=== PATIENT | female | born 1970 | race African-American/Black ===

== ENCOUNTER 2019-01-04 11:12 | Emergency (ER) | payer OTHER ==
[2019-01-04 11:36] VITALS: BP 140/91
--- NOTE | 2019-01-04 12:07 | UC ---
Knee Pain HPI - HPI Summary HPI Summary: Patient is a 48-year-old female, history of substance abuse, psychiatric illness , here for left knee pain. Patient banged her left knee to a coffee table 2 days ago. Patient's had pain in her lateral knee since then. Patient has been able to ambulate. Patient is taking naproxen, icing her knee, and using a knee brace. Patient has been sober from drugs for 13 years and works at a [employer]. medications reviewed - History of Current Complaint Chief Complaint: UCLowerExtremity Stated Complaint: KNEE INJ Time Seen by Provider: 01/04/19 11:39 Pain Intensity: 0 - Allergies/Home Medications Allergies/Adverse Reactions: Allergies Allergy/AdvReac Type Severity Reaction Status Date / Time acetaminophen [From Tylenol] Allergy Itching Verified 01/04/19 11:36 PMH/Surg Hx/FS Hx/Imm Hx Previously Healthy: No Cardiovascular History: Hypertension Psychological History: Depression, Bipolar Disorder - Surgical History Surgical History: Yes Surgery Procedure, Year, and Place: mouth reconstruction. finger amp to right hand. abdominal surgery - Family History Known Family History: Positive: Non-Contributory - Social History Alcohol Use: None Substance Use Type: None Smoking Status (MU): Current Some Day Smoker Review of Systems All Other Systems Reviewed And Are Negative: Yes Constitutional: Negative: Fever, Chills Skin: Negative: Bruising Respiratory: Negative: Shortness Of Breath, Cough Cardiovascular: Negative: Chest Pain Gastrointestinal: Negative: Vomiting, Diarrhea Physical Exam - Summary Physical Exam Summary: Vital Signs Reviewed: Yes A+Ox3, no distress Eyes: Conjunctiva Clear, PERRL. EOM intact and full ENT: Hearing grossly normal TM x 2 clear, moist, uvula midline, no exudate, no erythema Neck: Positive: Supple Respiratory: Positive: No respiratory distress, No accessory muscle use + CTA throughout no w/r Cardiovascular: RRR nl s1, s2 no m/r CBT <2 sec abd soft + BS nt/nd no guarding, no distension Musculoskeletal Exam: Left knee with tenderness on the lateral aspect. Patient' s full range of motion in her knee. No bony tenderness no medial or lateral joint laxity. Negative anterior and posterior drawer sign. DP/PT pupils 2+. Neurological: Positive: Alert, + sensation throughout Psychological: Positive: Normal Response To Family Skin: no rash, no ecchymosis Vital Signs: Initial Vital Signs Temp 98.5 F 01/04/19 11:28 Pulse 74 01/04/19 11:28 Resp 18 01/04/19 11:28 BP 140/91 01/04/19 11:28 Pulse Ox 98 01/04/19 11:28 Knee Pain Course/Dx - Course Course Of Treatment: Patient is here with an injury to her left knee. Patient able walk on her knee and has no bony tenderness. Patient did not need an x-ray today. Patient is arty treating her leg appropriately with a brace, Naprosyn, ice, elevating her leg. Patient was encouraged continue doing this and was given orthopedic surgery follow-up in case her symptoms are not improved. - Differential Dx/Diagnosis Provider Diagnosis: Left knee injury Discharge ED - Sign-Out/Discharge Documenting (check all that apply): Patient Departure All imaging exams completed and their final reports reviewed: No Studies - Discharge Plan Condition: Stable Disposition: HOME Patient Education Materials: Knee Pain (ED) Referrals: Justine Jacobs MD [Primary Care Provider] - Eliezer Servin MD [Medical Doctor] - Additional Instructions: Please continue taking Naprosyn for pain Please continue icing your knee Please continue using the brace please call the orthopedic surgeon if you continue to have symptoms. - Billing Disposition and Condition Condition: STABLE Disposition: Home
== END 2019-01-04 12:16 | disposition home or self-care (01) ==
LOC: UCCORT 11:12
DX: S89.92XA Unspecified injury of left lower leg, initial encounter (principal); W22.8XXA Striking against or struck by other objects, initial encounter; Y92.9 Unspecified place or not applicable; Z88.6 Allergy status to analgesic agent; I10 Essential (primary) hypertension; F17.200 Nicotine dependence, unspecified, uncomplicated
CPT/HCPCS: 99211; G0463

== ENCOUNTER 2019-04-16 13:17 | Emergency (ER) | payer OTHER ==
[2019-04-16 13:36] VITALS: BP 151/93
[2019-04-16] MEDS ORDERED: Tetan/Diph/Pertus SYR(Tdap)* 0.5 ML SYR(BOOSTRIX) use SYR contains LATEX IM ONE (13:47)
--- NOTE | 2019-04-16 13:57 | UC ---
Minor Trauma HPI - HPI Summary HPI Summary: needle stick left 5th finger as she was doing the needle exchange program , she was stuck , minimal bleeding pt. is here for PEP - History of Current Complaint Chief Complaint: UCGeneralIllness Stated Complaint: FINGER STICK Time Seen by Provider: 04/16/19 13:29 Hx Obtained From: Patient ?: No Onset/Duration: Sudden Onset, Lasting Hours - 4, Still Present Severity Initially: Moderate Severity Currently: Moderate Pain Intensity: 0 Mechanism Of Injury: Penetrating Trauma - needle stick Aggravating Factor(s): Nothing Alleviating Factor(s): Nothing - Allergies/Home Medications Allergies/Adverse Reactions: Allergies Allergy/AdvReac Type Severity Reaction Status Date / Time acetaminophen [From Tylenol] Allergy Itching Verified 04/16/19 13:26 Home Medications: Home Medications Nicotine GUM* 4MG FRUIT FLAVOR [Nicotine GUM*] 4 mg PO Q2H PRN 04/16/19 [ History Confirmed 04/16/19] Nicotine PATCH 14 MG/24 HR* 14 mg TRANSDERM DAILY 04/16/19 [History Confirmed ] PMH/Surg Hx/FS Hx/Imm Hx - Additional Past Medical History Additional PMH: schizo affective disorder depression PTSD manic scoliosis - Surgical History Surgical History: Yes Surgery Procedure, Year, and Place: mouth reconstruction. finger amp to right hand. abdominal surgery - Family History Known Family History: Positive: Non-Contributory - Social History Alcohol Use: None Substance Use Type: Marijuana Smoking Status (MU): Former Smoker When Did the Patient Quit Smoking/Using Tobacco: 05/2018 Review of Systems All Other Systems Reviewed And Are Negative: Yes Is Patient Immunocompromised?: No Physical Exam Triage Information Reviewed: Yes Appearance: Well-Appearing, No Pain Distress, Well-Nourished Vital Signs: Initial Vital Signs Temp 98.3 F 04/16/19 13:30 Pulse 79 04/16/19 13:30 Resp 16 04/16/19 13:30 BP 151/93 04/16/19 13:30 Pulse Ox 100 04/16/19 13:30 Vital Signs Reviewed: Yes Eye Exam: Normal Eyes: Positive: Conjunctiva Clear ENT: Positive: Normal ENT inspection, Hearing grossly normal, Pharynx normal Neck: Positive: Supple, Nontender, No Lymphadenopathy Respiratory: Positive: Chest non-tender, Lungs clear, Normal breath sounds Cardiovascular: Positive: RRR, No Murmur, Pulses Normal Abdominal Exam: Normal Skin Exam: Normal Minor Trauma Course/Dx - Differential Dx/Diagnosis Provider Diagnosis: Needle stick injury of finger Discharge ED - Sign-Out/Discharge Documenting (check all that apply): Patient Departure All imaging exams completed and their final reports reviewed: No Studies - Discharge Plan Condition: Stable Disposition: HOME Prescriptions: Raltegravir* [Isentress*] 400 mg PO BID #28 tab Tenofovir/Emtricitab 200/300 * [Truvada 200/300 mg*] 1 tab PO DAILY #14 tab Patient Education Materials: Needle Stick Injuries (ED) Referrals: Justine Jacobs MD [Primary Care Provider] - 7 Days - Billing Disposition and Condition Condition: STABLE Disposition: Home
[2019-04-16 18:52] LABS: ABS Eosinophils 0.3 10^3/ul (0-0.6); ABS Monocytes 0.5 10^3/ul (0-0.8); ABS Neutrophils 1.8 10^3/ul (1.5-7.7); Eosinophil % 5.8 %; Hematocrit 37 % (35-47); Hemoglobin 12.3 g/dL (12.0-16.0); Lymphocyte % 43.7 %; Mean Corpuscular HGB Conc 34 g/dL (31-36); Mean Corpuscular Hemoglobin 28 pg (27-31); Mean Corpuscular Volume 85 fL (80-97); Nucleated Red Blood Cells % 0.1; Platelet Count 187 10^3/uL (150-450); Red Blood Count 4.33 10^6 /uL (3.70-4.87); Red Cell Distribution Width 14 % (10-15); White Blood Count 4.5 10^3/uL (3.5-10.8)
[2019-04-16 19:03] LABS: Albumin 4.3 g/dL (3.2-5.2); Calcium 9.7 mg/dL (8.6-10.3); Potassium 4.1 mmol/L (3.5-5.0); Total Bilirubin 0.3 mg/dL (0.2-1.0)
[2019-04-16 19:09] LABS: Albumin/Globulin Ratio 1.7 (1-3); BUN/Creatinine Ratio 20.9 (8-20); EGFR African American 78.9 (>60); EGFR Non-African American 65.2 (>60); Globulin 2.5 g/dL (2-4); Total Protein 6.8 g/dL (6.4-8.9)
[2019-04-16 19:33] LABS: Hepatitis B Surface Antigen Nonreactive (Nonreactive)
[2019-04-16 19:50] LABS: Hepatitis B Surface Ab Immune (Immune)
[2019-04-16 20:12] LABS: Hepatitis C Antibody Reactive (Negative)
[2019-04-16 20:22] LABS: HIV 4th Generation Nonreactive (Nonreactive)
== END 2019-04-16 14:17 | disposition home or self-care (01) ==
LOC: UCCORT 13:17
DX: S69.82XA Other specified injuries of left wrist, hand and finger(s), initial encounter (principal); W46.0XXA Contact with hypodermic needle, initial encounter; Y92.9 Unspecified place or not applicable; Z88.6 Allergy status to analgesic agent; Z87.891 Personal history of nicotine dependence
CPT/HCPCS: 36415; 80053; 85025; 86706; 86803; 87340; 87389; 87522; 90471; 90715; 99212; G0463